=== PATIENT | female | born 1990 | race Caucasian/White ===

== ENCOUNTER 2017-02-13 18:15 | Emergency (ER) | payer MEDICARE, OTHER | END 2017-02-13 18:34 | disposition home or self-care (01) | LOC: ER 18:15 | DX: H66.92 Otitis media, unspecified, left ear (principal); H40.9 Unspecified glaucoma; F31.9 Bipolar disorder, unspecified; E03.9 Hypothyroidism, unspecified; F17.210 Nicotine dependence, cigarettes, uncomplicated; Z79.899 Other long term (current) drug therapy ==